=== PATIENT | female | born 2000 | race African-American/Black ===

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

== ENCOUNTER 2019-03-20 00:01 | Emergency (ER) | payer MEDICAID ==
[~2019-03-20] VITALS: Ht 170.2 cm; Wt 87.7 kg
[~2019-03-20 00:01] MED LIST changes: +MECL1CHW PO; -MECL1CHW2 PO
== END 2019-03-20 03:30 | disposition left against medical advice (07) ==
LOC: M ED 00:01
DX: Z53.29 Procedure and treatment not carried out because of patient's decision for other reasons (principal)

== ENCOUNTER 2019-08-31 14:20 | Emergency (ER) | payer MEDICAID, OTHER ==
[~2019-08-31] VITALS: Ht 170.2 cm; Wt 68.8 kg
[2019-08-31] MEDS ORDERED: FLON1SPR NARES (16:53)
[2019-08-31] MEDS ORDERED: PSEU30TA85 PO (16:53)
[2019-08-31] MEDS ORDERED: VENTAER INH (16:53)
[2019-08-31 16:59] VITALS: BP 117/80
[2019-09-02] MEDS ORDERED: AMOX500C PO (08:20)
== END 2019-08-31 17:07 | disposition home or self-care (01) ==
LOC: M ED 14:20
DX: J06.9 Acute upper respiratory infection, unspecified (principal); B34.9 Viral infection, unspecified; F17.210 Nicotine dependence, cigarettes, uncomplicated; Z91.048 Other nonmedicinal substance allergy status; Z91.018 Allergy to other foods; Z79.51 Long term (current) use of inhaled steroids; Z79.899 Other long term (current) drug therapy

== ENCOUNTER 2022-07-12 04:49 | Emergency (ER) | payer OTHER ==
[~2022-07-12] VITALS: Ht 170.2 cm; Wt 78.2 kg
[~2022-07-12 04:49] MED LIST changes: +AMOX500C PO; +FLON1SPR NARES; +PSEU30TA86 PO; +VENTAER INH
[2022-07-12] MEDS ORDERED: OXYM15SP2 (07:48)
[2022-07-12] MEDS ORDERED: BENZ200C70 PO (07:48)
[2022-07-12 08:21] VITALS: BP 116/81
== END 2022-07-12 08:26 | disposition home or self-care (01) ==
LOC: M ED 04:49
DX: J06.9 Acute upper respiratory infection, unspecified (principal); B34.8 Other viral infections of unspecified site; F17.200 Nicotine dependence, unspecified, uncomplicated; Z91.018 Allergy to other foods; Z79.51 Long term (current) use of inhaled steroids; Z79.899 Other long term (current) drug therapy

== ENCOUNTER 2022-10-08 21:11 | Emergency (ER) | payer OTHER ==
[~2022-10-08] VITALS: Ht 170.2 cm; Wt 85.7 kg
[~2022-10-08 21:11] MED LIST changes: +BENZ200C70 PO; +OXYM15SP2
[2022-10-09 01:39] VITALS: BP 138/83
[2022-10-09 02:08] LABS: BASO % 0.2 % (0.0-1.0); EOS % 0.2 % (0.0-3.0); HEMATOCRIT 44.3 % (36.0-47.0); HEMOGLOBIN 14.4 g/dl (12.0-15.5); LYMPH # 2.3 10^3/uL (1.5-5.0); LYMPH % 55.5 % (24.0-44.0); MEAN CORPUSCULAR HEMOGLOBIN 30.3 pg (27.0-33.0); MEAN CORPUSCULAR HGB CONC 32.5 g/dl (32.0-36.5); MEAN CORPUSCULAR VOLUME 93.1 fl (80.0-96.0); MONO # 0.6 10^3/uL (0.0-0.8); MONO % 14.1 % (2.0-8.0); NEUTROPHILS # 1.2 10^3/uL (1.5-8.5); NEUTROPHILS % 29.8 % (36.0-66.0); PLATELET COUNT, AUTOMATED 259 10^3/uL (150-450); RED BLOOD COUNT 4.76 10^6/uL (4.00-5.40); WHITE BLOOD COUNT 4.1 10^3/uL (4.0-10.0)
[2022-10-09 02:29] LABS: BLOOD UREA NITROGEN 8 MG/DL (9-23); CALCIUM LEVEL 8.6 MG/DL (8.5-10.1); CARBON DIOXIDE LEVEL 27 MMOL/L (20-31); CHLORIDE LEVEL 103 MMOL/L (98-107); CREATININE FOR GFR 0.68 MG/DL (0.55-1.30); GLOMERULAR FILTRATION RATE > 60.0 (>60); GLUCOSE, FASTING 92 MG/DL (60-100); POTASSIUM SERUM 3.8 MMOL/L (3.5-5.1); SODIUM LEVEL 138 MMOL/L (136-145)
== END 2022-10-09 05:09 | disposition left against medical advice (07) ==
LOC: M ED 21:11
DX: Z53.21 Procedure and treatment not carried out due to patient leaving prior to being seen by health care provider (principal)

== ENCOUNTER 2022-10-10 20:06 | Emergency (ER) | payer OTHER ==
[~2022-10-10] VITALS: Ht 170.2 cm; Wt 85.6 kg
[2022-10-10 20:07] VITALS: BP 104/72
[2022-10-11] MEDS ORDERED: ACETAMINOPHEN TAB 650MG DOSE (2X325MG) PO ONE (01:00)
[2022-10-11] MEDS ORDERED: IBUPROFEN 800 MG TAB PO ONE (01:00)
[2022-10-11] MEDS ORDERED: CEPH500C PO (01:46)
[2022-10-11] MEDS ORDERED: ONDA4TAB6 PO (01:46)
[2022-10-11] MEDS ORDERED: BENZ200C70 PO (01:46)
[2022-10-11] MEDS ORDERED: IBUP-1022 PO (01:46)
== END 2022-10-11 01:58 | disposition home or self-care (01) ==
LOC: M ED 20:06
DX: J06.9 Acute upper respiratory infection, unspecified (principal); F41.9 Anxiety disorder, unspecified; F17.200 Nicotine dependence, unspecified, uncomplicated; Z91.018 Allergy to other foods; Z91.048 Other nonmedicinal substance allergy status; Z79.83 Long term (current) use of bisphosphonates; Z79.811 Long term (current) use of aromatase inhibitors; Z79.899 Other long term (current) drug therapy

== ENCOUNTER 2023-01-05 10:46 | Inpatient (IN) | payer OTHER ==
[~2023-01-05] VITALS: Ht 170.2 cm; Wt 86.9 kg
[~2023-01-05 10:46] MED LIST changes: +CEPH500C PO; +IBUP-1022 PO; +ONDA4TAB6 PO
[2023-01-05 13:04] LABS: HEMATOCRIT 39.4 % (36.0-47.0); HEMOGLOBIN 13.2 g/dl (12.0-15.5); MEAN CORPUSCULAR HEMOGLOBIN 30.9 pg (27.0-33.0); MEAN CORPUSCULAR HGB CONC 33.5 g/dl (32.0-36.5); MEAN CORPUSCULAR VOLUME 92.3 fl (80.0-96.0); PLATELET COUNT, AUTOMATED 307 10^3/uL (150-450); RED BLOOD COUNT 4.27 10^6/uL (4.00-5.40); WHITE BLOOD COUNT 10.5 10^3/uL (4.0-10.0)
[2023-01-05] MEDS ORDERED: HOME MED LIST COMPLETE! XX SCH (13:10)
[2023-01-05 13:26] LABS: AMPHETAMINES LEVEL URINE NEGATIVE (NEGATIVE); BARBITURATES URINE NEGATIVE (NEGATIVE); BENZODIAZEPINES URINE NEGATIVE (NEGATIVE); METHADONE URINE NEGATIVE (NEGATIVE); OPIATES URINE NEGATIVE (NEGATIVE); PHENCYCLIDINE URINE NEGATIVE (NEGATIVE)
[2023-01-05 13:27] LABS: COCAINE METABOLITE URINE NEGATIVE (NEGATIVE)
[2023-01-05 13:28] LABS: CANNABINOIDS URINE POSITIVE (NEGATIVE)
[2023-01-05 13:29] LABS: ETHYL ALCOHOL (ETHANOL) < 0.003 % (0.000-0.010); HCG, SERUM QUALITATIVE NEGATIVE (NEGATIVE)
[2023-01-05 13:30] LABS: SALICYLATE LEVEL < 3.0 MG/DL (<30)
[2023-01-05 13:31] LABS: ACETAMINOPHEN LEVEL < 2.0 UG/ML (10.0-20.0); ALBUMIN 4.1 G/DL (3.2-5.2); ALKALINE PHOSPHATASE 78 U/L (46-116); ALT/SGPT 13 U/L (7.0-40); AST/SGOT 20 U/L (<34); BILIRUBIN,DIRECT 0.3 MG/DL (<0.4); BILIRUBIN,TOTAL 0.7 MG/DL (0.3-1.2); BLOOD UREA NITROGEN 11 MG/DL (9-23); CARBON DIOXIDE LEVEL 26 MMOL/L (20-31); CHLORIDE LEVEL 107 MMOL/L (98-107); CREATININE FOR GFR 0.71 MG/DL (0.55-1.30); GLOMERULAR FILTRATION RATE > 60.0 (>60); GLUCOSE, FASTING 86 MG/DL (60-100); SODIUM LEVEL 138 MMOL/L (136-145); TOTAL PROTEIN 7.2 G/DL (5.7-8.2)
[2023-01-05 13:33] LABS: THYROID STIMULATING HORMONE 1.221 uIU/ML (0.55-4.78)
[2023-01-05] MEDS ORDERED: ACETAMINOPHEN TAB 650MG DOSE (2X325MG) PO PRN (16:05)
[2023-01-05] MEDS ORDERED: MAALOX 30 ML SUSP *UDC PO PRN (16:05)
[2023-01-05] MEDS ORDERED: traZODone 50 MG TAB PO PRN (16:05)
[2023-01-05] MEDS ORDERED: MOM 30ML SUSPENSION UDC PO PRN (16:05)
[2023-01-05 17:41] VITALS: BP 129/73
[2023-01-05] MEDS: OLANZapine ORAL DISINTEGRATING TAB 5MG PO PRN (17:51)
[2023-01-06 05:52] VITALS: BP 102/58
[2023-01-06] MEDS: OLANZapine ORAL DISINTEGRATING TAB 5MG PO PRN (15:54)
[2023-01-06] MEDS: SERTRALINE HCL 50 MG TAB PO SCH (15:54)
[2023-01-06 16:14] VITALS: BP 125/70
[2023-01-06] MEDS: PRAZOSIN 1 MG CAP PO SCH (21:37)
[2023-01-07 05:53] VITALS: BP 114/73
[2023-01-07] MEDS: SERTRALINE HCL 50 MG TAB PO SCH (09:33)
[2023-01-07] MEDS: OLANZapine ORAL DISINTEGRATING TAB 5MG PO PRN (12:03)
[2023-01-07] MEDS ORDERED: hydrOXYzine 50 MG TAB PO PRN (15:55)
[2023-01-07 16:06] VITALS: BP 120/73
[2023-01-07] MEDS ORDERED: PILL CUTTER 1 EACH XX PRN (16:40)
[2023-01-07] MEDS: PRAZOSIN 1 MG CAP PO SCH (20:06)
[2023-01-07] MEDS ORDERED: traZODone 50 MG TAB PO PRN (21:00)
[2023-01-08 06:29] VITALS: BP 100/65
[2023-01-08] MEDS: SERTRALINE HCL 50 MG TAB PO SCH (08:43)
[2023-01-08] MEDS: OLANZapine ORAL DISINTEGRATING TAB 5MG PO PRN (12:44)
[2023-01-08 15:55] VITALS: BP 108/69
[2023-01-08 21:32] VITALS: BP 108/69
[2023-01-08] MEDS: PRAZOSIN 1 MG CAP PO SCH (21:32)
[2023-01-09 06:25] VITALS: BP 119/62
[2023-01-09] MEDS: SERTRALINE HCL 50 MG TAB PO SCH (08:13)
[2023-01-09] MEDS ORDERED: SERT50TA29 PO (08:51)
[2023-01-09] MEDS ORDERED: MINI1CAP PO (08:51)
== END 2023-01-09 11:26 | disposition home or self-care (01) | DRG 751 ==
LOC: M ED 10:46 → M ED INP 16:01 → M PSY 16:40
PROVIDERS: ADMIT Psychiatry & Neurology Psychiatry; ATTEND Psychiatry & Neurology Psychiatry
DX: F33.9 Major depressive disorder, recurrent, unspecified (principal); F43.10 Post-traumatic stress disorder, unspecified; F41.1 Generalized anxiety disorder; F31.9 Bipolar disorder, unspecified; F12.90 Cannabis use, unspecified, uncomplicated; F17.210 Nicotine dependence, cigarettes, uncomplicated; Z91.018 Allergy to other foods; Z79.899 Other long term (current) drug therapy; R45.851 Suicidal ideations

== ENCOUNTER 2023-01-31 15:48 | Emergency (ER) | payer OTHER ==
[~2023-01-31] VITALS: Ht 170.2 cm; Wt 88.6 kg
[~2023-01-31 15:48] MED LIST changes: +MINI1CAP PO; +SERT50TA29 PO
[2023-01-31] MEDS ORDERED: KETOROLAC 30 MG/ML 1ML VIAL IV ONE (18:40)
[2023-01-31 19:12] VITALS: BP 129/70
== END 2023-01-31 19:14 | disposition home or self-care (01) ==
LOC: EDBD 15:48 → M ED 15:48
DX: M54.2 Cervicalgia (principal); Y04.8XXA Assault by other bodily force, initial encounter; F41.9 Anxiety disorder, unspecified; F32.A Depression, unspecified; F17.200 Nicotine dependence, unspecified, uncomplicated; F12.10 Cannabis abuse, uncomplicated; Z91.018 Allergy to other foods; Z91.048 Other nonmedicinal substance allergy status; Z79.899 Other long term (current) drug therapy
CPT/HCPCS: 70450; 70486; 72125; 96374; 99284; J1885

== ENCOUNTER → 2023-07-23 | Outpatient (REF) | payer OTHER | LOC: M SFHCPLAZ 10:49 | PROVIDERS: ATTEND Student in an Organized Health Care Education/Training Program | DX: Z76.89 Persons encountering health services in other specified circumstances (principal) ==

== ENCOUNTER → 2023-07-23 | Outpatient (CLI) | payer OTHER ==
[2023-07-23 14:23] LABS: BASO % 0.4 % (0.0-1.0); EOS # 0.1 10^3/uL (0.0-0.5); HEMATOCRIT 43.4 % (36.0-47.0); HEMOGLOBIN 13.9 g/dl (12.0-15.5); LYMPH # 2.3 10^3/uL (1.5-5.0); LYMPH % 27.8 % (24.0-44.0); MEAN CORPUSCULAR HEMOGLOBIN 30.3 pg (27.0-33.0); MEAN CORPUSCULAR VOLUME 94.6 fl (80.0-96.0); MONO # 0.7 10^3/uL (0.0-0.8); NEUTROPHILS % 61.6 % (36.0-66.0); PLATELET COUNT, AUTOMATED 351 10^3/uL (150-450); RED BLOOD COUNT 4.59 10^6/uL (4.00-5.40); WHITE BLOOD COUNT 8.1 10^3/uL (4.0-10.0)
[2023-07-23 14:35] LABS: HEMOGLOBIN A1c 5.1 % (4.0-6.0)
[2023-07-23 14:53] LABS: ALKALINE PHOSPHATASE 91 U/L (46-116); ALT/SGPT 13 U/L (7.0-40); AST/SGOT 13 U/L (<34); BILIRUBIN,TOTAL 0.5 MG/DL (0.3-1.2); BLOOD UREA NITROGEN 6 MG/DL (9-23); CALCIUM LEVEL 9.5 MG/DL (8.5-10.1); CARBON DIOXIDE LEVEL 26 MMOL/L (20-31); CHLORIDE LEVEL 109 MMOL/L (98-107); CREATININE FOR GFR 0.64 MG/DL (0.55-1.30); GLOMERULAR FILTRATION RATE > 60.0 (>60); GLUCOSE, FASTING 76 MG/DL (60-100); POTASSIUM SERUM 4.4 MMOL/L (3.5-5.1); SODIUM LEVEL 139 MMOL/L (136-145); TOTAL PROTEIN 7.3 G/DL (5.7-8.2)
[2023-07-23 14:55] LABS: FREE T4 1.17 NG/DL (0.89-1.76); THYROID STIMULATING HORMONE 1.396 uIU/ML (0.55-4.78)
[2023-07-23 15:26] LABS: HIV 1&2 SCREEN NEGATIVE (NEGATIVE)
[2023-07-23 15:34] LABS: HEPATITIS C VIRUS ABY INDEX 0.05 INDEX (<0.8)
== END ==
LOC: M PLALAB 11:13
PROVIDERS: ATTEND Student in an Organized Health Care Education/Training Program
DX: Z76.89 Persons encountering health services in other specified circumstances (principal)

== ENCOUNTER → 2023-08-01 | Outpatient (CLI) | payer OTHER | LOC: M SLEEP 11:47 | PROVIDERS: ATTEND Student in an Organized Health Care Education/Training Program | DX: Z86.69 Personal history of other diseases of the nervous system and sense organs (principal) ==

== ENCOUNTER 2023-09-17 11:04 | Emergency (ER) | payer OTHER ==
[~2023-09-17] VITALS: Ht 170.2 cm; Wt 77.2 kg
[2023-09-17] MEDS ORDERED: LAMO25TA4 (11:26)
[2023-09-17] MEDS ORDERED: TRAZ-252 (11:26)
[2023-09-17 12:22] LABS: RSV AMPLIFICATION NEGATIVE (NEGATIVE)
[2023-09-17] MEDS ORDERED: BENZ200C70 PO (16:43)
[2023-09-17 16:56] VITALS: BP 127/86; TEMP 98.9; O2SAT 98
== END 2023-09-17 16:57 | disposition home or self-care (01) ==
LOC: M ED 11:04
DX: J06.9 Acute upper respiratory infection, unspecified (principal); Z91.018 Allergy to other foods; Z91.048 Other nonmedicinal substance allergy status; Z79.899 Other long term (current) drug therapy; Z79.811 Long term (current) use of aromatase inhibitors; Z79.83 Long term (current) use of bisphosphonates